=== PATIENT | female | born 1945 | race Caucasian/White ===

== ENCOUNTER 2018-05-30 07:56 | Outpatient (CLI) | payer MEDICARE, OTHER ==
--- NOTE | 2018-05-30 10:12 | CT ---
CT PULMONARY LUNG SCAN PERFORMED WITHOUT CONTRAST ENHANCEMENT: History: Low dose screening examination. Patient was a smoker for 50+ years, quit 6 years ago. FINDINGS: There is a calcified granuloma within the right upper lobe. There is also calcified hilar and subcari nal lymph nodes consistent with old granulomatous disease. There is some linear scarring in the lung bases. No significant mediastinal adenopathy is appreciated. Thoracic aorta is normal in caliber. Small hiat al hernia is noted. Probable gallstone incidentally seen. IMPRESSION: Lung rads category 1 - negative. Modifier F. Modifier being placed for the presence of gallstones. Re commendation is annual screening in 12 months. POS: [facility]
== END 2018-05-30 07:57 | disposition home or self-care (01) ==
LOC: BICMAMMO 07:56 → CT 07:57
PROVIDERS: ATTEND Family Medicine
DX: Z12.31 Encounter for screening mammogram for malignant neoplasm of breast (principal); Z12.2 Encounter for screening for malignant neoplasm of respiratory organs; R92.1 Mammographic calcification found on diagnostic imaging of breast
CPT/HCPCS: 77063; 77067; G0297

== ENCOUNTER 2021-08-10 07:36 | Day surgery (SDC) | payer MEDICARE ==
[2021-08-07 12:28] VITALS: BMI 23.7
[2021-08-10 08:25] VITALS: TEMP 98.1
[2021-08-10 09:24] VITALS: BP 128/54
[2021-08-10 10:52] LABS: CSF RBC Count - Manual 0 /cu.mm (None Seen); CSF Source CSF; CSF WBC/NonHematics Count-Man 0 /cu.mm (0-5); Clarity Clear (Clear); Tube # 4
[2021-08-10 11:14] LABS: Reference Lab Name LABCORP
[2021-08-10 11:15] LABS: CSF, Glucose 90 mg/dl (40-70); CSF, Protein 34 mg/dL (15-40)
[2021-08-10 11:34] LABS: Color Of CSF Supernatant COLORLESS (Colorless); Tube # 2; Unspun CSF Color COLORLESS (Colorless)
[2021-08-10 14:22] LABS: Ref Lab Test Ordered IGG SYN + INDEX; Reference Lab Name LABCORP
[2021-08-12 11:16] LABS: A/G Ratio 1.4 (0.7-1.7); Alpha 1 0.1 g/dL (0.0-0.4); Alpha 2 0.7 g/dL (0.4-1.0); Gamma 0.9 g/dL (0.4-1.8); Globulin, Total 2.8 g/dL (2.2-3.9); M-Spike Not Observed g/dL (Not Observed)
== END 2021-08-10 10:00 | disposition home or self-care (01) ==
LOC: RAD 07:36
PROVIDERS: ATTEND Family Medicine
PROC: 009U3ZX Drainage of Spinal Canal, Percutaneous Approach, Diagnostic (ICD-10-PCS; principal; 2021-08-10)
DX: G62.9 Polyneuropathy, unspecified (principal); I10 Essential (primary) hypertension; E78.5 Hyperlipidemia, unspecified; E11.9 Type 2 diabetes mellitus without complications; Z79.84 Long term (current) use of oral hypoglycemic drugs; Z79.899 Other long term (current) drug therapy
CPT/HCPCS: 62270; 82945; 83916; 84157; 84165; 89051

== ENCOUNTER 2021-08-19 12:27 | Outpatient (CLI) | payer MEDICARE | END 2021-08-19 12:28 | disposition home or self-care (01) | LOC: BICMAMMO 12:27 | PROVIDERS: ATTEND Family Medicine | DX: Z12.31 Encounter for screening mammogram for malignant neoplasm of breast (principal) | CPT/HCPCS: 77063; 77067 ==

== ENCOUNTER 2024-01-31 14:17 | Outpatient (CLI) | payer MEDICARE | END 2024-01-31 14:18 | disposition home or self-care (01) | LOC: BICMAMMO 14:17 | PROVIDERS: ATTEND Family Medicine | DX: Z12.31 Encounter for screening mammogram for malignant neoplasm of breast (principal) | CPT/HCPCS: 77063; 77067 ==